=== PATIENT | female | born 1995 | race Asian ===

== ENCOUNTER 2019-02-03 19:47 | Emergency (ER) | payer OTHER ==
[~2019-02-03] VITALS: Ht 157.5 cm; Wt 54.5 kg
[2019-02-03 20:07] VITALS: BP 136/76; PULSE 87; TEMP 98.5
[2019-02-03] MEDS ORDERED: AMOXICILLIN 8751 TAB PO (21:30)
== END 2019-02-03 21:47 | disposition home or self-care (01) ==
LOC: COL.ER 19:47
DX: J32.1 Chronic frontal sinusitis (principal)